=== PATIENT | male | born 1960 ===

== ENCOUNTER 2024-07-06 10:24 | Emergency (ER) | payer OTHER ==
[~2024-07-06] VITALS: Ht 180.3 cm; Wt 77.1 kg
[2024-07-06 11:53] LABS: BASOPHILS ABSOLUTE AUTO 0.06 K/mm3 (0.00-0.23); BASOPHILS PERCENT AUTO 1 % (0-2); EOSINOPHILS ABSOLUTE AUTO 0.04 K/mm3 (0.00-0.68); EOSINOPHILS PERCENT AUTO 1 % (0-6); Hematocrit 44.1 % (37.0-53.0); Hemoglobin 15.1 g/dL (13.5-17.5); IMMATURE GRAN ABSOLUTE AUTO 0.03 K/mm3 (0.00-0.10); IMMATURE GRAN PERCENT AUTO 0 % (0-1); LYMPHOCYTES ABSOLUTE AUTO 3.44 K/mm3 (0.84-5.20); LYMPHOCYTES PERCENT AUTO 42 % (21-46); MONOCYTES ABSOLUTE AUTO 0.62 K/mm3 (0.16-1.47); MONOCYTES PERCENT AUTO 8 % (4-13); Mean Corpuscular HGB 32.4 pg (26.0-34.0); Mean Corpuscular HGB Conc 34.2 g/dL (31.5-36.5); Mean Corpuscular Volume 95 fL (80-100); NEUTROPHILS ABSOLUTE AUTO 3.95 K/mm3 (1.96-9.15); NEUTROPHILS PERCENT AUTO 49 % (41-73); Platelet Count 188 K/mm3 (150-400); RDW Coefficient Variation 13.2 % (11.7-14.2); RDW Standard Deviation 45.5 fL (35.1-46.3); Red Blood Cell Count 4.66 M/mm3 (4.30-5.90); White Blood Cell Count 8.14 K/mm3 (4.00-11.30)
[2024-07-06 11:57] LABS: Source, Urine Voided
[2024-07-06 12:02] LABS: Appearance, Urine Clear (Clear); Bilirubin, Urine Neg (Neg); Blood, Urine Neg (Neg); Color, Urine Yellow (P-Yellow); Glucose Qualitative, Urine Neg (Neg); Ketones, Urine 1+ (Neg); Leukocyte Esterase, Urine Neg (Neg); Nitrite, Urine Neg (Neg); Protein, Urine Neg (Neg); Urobilinogen, Urine NORM (Normal)
[2024-07-06 12:18] LABS: Ethanol (Alcohol), Blood, Med <3 mg/dL
[2024-07-06 12:19] LABS: Salicylate <1.7 mg/dL (2.8-20.0)
[2024-07-06 12:21] LABS: Alanine Aminotransfer (ALT/SGP 37 U/L (12-78); Albumin, Blood 3.9 g/dL (3.4-5.0); Albumin/Globulin Ratio 1.1 (0.8-1.8); Alk Phos 72 U/L (50-136); Anion Gap 10 mmol/L (3-11); Aspartate Aminotrans (AST/SGOT 29 U/L (12-37); Blood Urea Nitrogen 16 mg/dL (8-24); Bun/Creatinine Ratio 18.1 (12.0-20.0); CO2, Blood 28 mmol/L (21-32); Calcium, Blood 8.7 mg/dL (8.5-10.1); Chloride, Blood 103 mmol/L (98-108); Creatinine, Blood 0.88 mg/dL (0.60-1.20); Globulin, Blood 3.6 g/dL (2.2-4.0); Glomerular Filtration Rate 97 (60-); Glucose, Blood 86 mg/dL (70-99); Potassium, Blood 4.1 mmol/L (3.5-5.5); Sodium, Blood 137 mmol/L (136-145); Total Protein, Blood 7.5 g/dL (6.4-8.2)
[2024-07-06 12:22] LABS: Acetaminophen, Random <2.0 ug/mL (10.0-30.0)
[2024-07-06 12:22] LABS: U Amphetamine Screen DETECTED; U Barbituate Screen Not Detected; U Benzodiazapine Screen Not Detected; U Buprenorphine Screen Not Detected; U Cannabinoids Screen Not Detected; U Cocaine Screen Not Detected; U Methadone Screen Not Detected; U Methamphetamine Screen DETECTED; U Opiates Screen Not Detected; U Oxycodone Screen Not Detected; U Phencyclidine Screen Not Detected
[2024-07-06] MEDS ORDERED: Polyethylene Glycol 3350 17 gm PO PRN (16:45)
[2024-07-06] MEDS ORDERED: Melatonin 3 MG Tab PO PRN (16:45)
[2024-07-06] MEDS ORDERED: TraZODone HCl 50 MG Tab PO PRN (16:45)
[2024-07-06] MEDS ORDERED: Aluminum Hydroxide 320MG/5ML 473 ML PO PRN (16:50)
[2024-07-06] MEDS ORDERED: OLANZapine ODT 10 MG Tab MM PRN (16:50)
[2024-07-06] MEDS ORDERED: LORazepam 2 MG Tab PO PRN (16:50)
[2024-07-06] MEDS ORDERED: DiphenhydrAMINE HCl 50 MG Cap PO PRN (16:50)
[2024-07-06] MEDS ORDERED: DiphenhydrAMINE HCl 50 MG/ML 1ML Vial IV PRN (16:50)
[2024-07-06] MEDS ORDERED: LORazepam 2 MG/ML 1ML Injection IM PRN (16:50)
[2024-07-06] MEDS ORDERED: FLU VACC TS2024-25(6MOS UP)/PF 45 MCG/0.5 ML SYRINGE IM SCH (16:55)
[2024-07-06] MEDS ORDERED: Acetaminophen 325 MG TABLET PO PRN (16:55)
[2024-07-06] MEDS ORDERED: Calcium Carbonate 500 MG Tab Chew PO PRN (16:55)
[2024-07-06] MEDS ORDERED: Haloperidol 5 MG Tab PO PRN (16:55)
[2024-07-06] MEDS ORDERED: Ibuprofen 600 MG Tab PO PRN (16:55)
[2024-07-06] MEDS ORDERED: Haloperidol Lactate Inj. 5 MG/ML Injection IM PRN (16:55)
[2024-07-06] MEDS ORDERED: HydrOXYzine Pamoate 50 MG Cap PO PRN (16:55)
[2024-07-06] MEDS ORDERED: Ondansetron 4 MG SoluTab MM PRN (17:05)
[2024-07-07] MEDS ORDERED: Multivitamins 1 Tab PO SCH (09:00)
== END 2024-07-07 08:46 | disposition other institution (70) ==
LOC: ER 10:24
PROVIDERS: Emergency Medicine
DX: F20.9 Schizophrenia, unspecified (principal)
CPT/HCPCS: 80053; 80320; 81003; 85025; 93005; 93010; 99285-25; G0480

== ENCOUNTER 2024-07-06 16:43 | Inpatient (IN) | payer OTHER ==
[~2024-07-06] VITALS: Wt 75.5 kg
[2024-07-07] MEDS ORDERED: DiphenhydrAMINE HCl 50 MG Cap PO PRN (06:55)
[2024-07-07] MEDS ORDERED: DiphenhydrAMINE HCl 50 MG/ML 1ML Vial IV PRN (06:55)
[2024-07-07] MEDS ORDERED: FLU VACC TS2024-25(6MOS UP)/PF 45 MCG/0.5 ML SYRINGE IM SCH (06:55)
[2024-07-07] MEDS ORDERED: Haloperidol Lactate Inj. 5 MG/ML Injection IM PRN (07:00)
[2024-07-07] MEDS ORDERED: Polyethylene Glycol 3350 17 gm PO PRN (07:00)
[2024-07-07] MEDS ORDERED: OLANZapine ODT 10 MG Tab MM PRN (07:00)
[2024-07-07] MEDS ORDERED: HydrOXYzine Pamoate 50 MG Cap PO PRN (07:00)
[2024-07-07] MEDS ORDERED: LORazepam 2 MG/ML 1ML Injection IM PRN (07:00)
[2024-07-07] MEDS ORDERED: Haloperidol 5 MG Tab PO PRN (07:00)
[2024-07-07] MEDS ORDERED: Ibuprofen 600 MG Tab PO PRN (07:05)
[2024-07-07] MEDS ORDERED: TraZODone HCl 50 MG Tab PO PRN (07:05)
[2024-07-07] MEDS ORDERED: Aluminum Hydroxide 320MG/5ML 473 ML PO PRN (07:05)
[2024-07-07] MEDS ORDERED: Acetaminophen 325 MG TABLET PO PRN (07:05)
[2024-07-07] MEDS ORDERED: LORazepam 2 MG Tab PO PRN (07:05)
[2024-07-07] MEDS ORDERED: Calcium Carbonate 500 MG Tab Chew PO PRN (07:05)
[2024-07-07] MEDS ORDERED: Melatonin 3 MG Tab PO PRN (07:05)
[2024-07-07] MEDS ORDERED: Ondansetron 4 MG SoluTab MM PRN (07:10)
[2024-07-07] MEDS ORDERED: Multivitamins 1 Tab PO SCH (09:00)
[2024-07-07 09:06] VITALS: BP 127/87
[2024-07-07] MEDS ORDERED: Levothyroxine Sodium 0.05 MG Tab PO SCH (14:00)
--- NOTE | 2024-07-07 17:59 | NUR ---
SHIFT SUMMARY: PT ARRIVED TO UNIT THIS AM. HAS SPENT MOST OF THE DAY SLEEPING ON HIS BED. UP FOR MEALS AND COMPLIANT WITH MEDICATIONS.
[2024-07-07 20:13] VITALS: BP 107/82
[2024-07-07] MEDS ORDERED: RisperiDONE 1 MG Tab PO SCH (21:00)
--- NOTE | 2024-07-08 05:15 | NUR ---
SHIFT SUMMARY: PATIENT IN BED RESTING WHEN RN TOOK OVER CARE AT 0030. HE CONTINUED TO REST QUIETLY WITH EYES CLOSED AND RESPIRATIONS CONFIRMED FOR THE REMAINDER OF THE SHIFT. NO S/SX SUICIDAL IDEATION OR SELF HARMING NOTED THIS SHIFT. CONTINUING TO MONITOR FOR SAFETY WITH Q15 MINUTE CHECKS.
[2024-07-08 07:59] VITALS: BP 123/78
--- NOTE | 2024-07-08 17:49 | NUR ---
SHIFT SUMMARY: PT ALERT, ORIENTED AND COOPERATIVE WITH CARE. PT ATTENDED MEALS AND WAS COMPLIANT WITH MEDICATIONS. HE DENIES SI, HI BUT DOES INDORSE ADUITORY HALLUCINATIONS. PT WAS NOT VERY TALKATIVE THROUGHOUT THE DAY. HE DID GO INTO THE DAY ROOM WITH STAFF AND PEERS FOR A SHORT PERIOD OF TIME TO WATCH TV.
[2024-07-08 20:35] VITALS: BP 100/63
[2024-07-08] MEDS ORDERED: RisperiDONE 1 MG Tab PO SCH (21:00)
--- NOTE | 2024-07-09 04:21 | NUR ---
SHIFT SUMMARY: PATIENT WAS IN BED RESTING AT THE BEGINNING OF THE SHIFT. HE DECLINED OFFERS TO COME TO THE DINING AREA AND HAVE A SNACK AT 1999. HE WAS COMPLIANT WITH EVENING MEDICATION ADMINISTRATION. HE GRUNTED DENIAL WHEN ASKED IF HE FELT SUICIDAL IDEATION OR FELT LIKE SELF HARMING. HE RESTED QUIETLY IN BED WITH EYES CLOSED AND RESPIRATIONS CONFIRMED FOR MOST OF THE SHIFT, ONLY AWAKENING FOR MEDICATIONS AND TO USE BATHROOM. CONTINUING TO MONITOR FOR SAFETY WITH Q15 MINUTE CHECKS.
[2024-07-09 08:33] VITALS: BP 112/69
--- NOTE | 2024-07-09 17:03 | NUR ---
SHIFT SUMMARY: PT ALERT, ORIENTED AND COOPERATIVE WITH CARE. DENIES SI AND HI. C/O OF AVH. STATES THAT THE VOICES ARE QUITER TODAY. PT PRESENT FOR MEALS AND COMPLIANT WITH MEDICATIONS. PT AMBULATED IN TOWARDS THE END OF THE DAY. C/O INCREASED ANXIETY. MEDICATED PER EMAR WITH PRN.
[2024-07-09 20:36] VITALS: BP 110/73
--- NOTE | 2024-07-10 04:49 | NUR ---
SHIFT SUMMARY: PATIENT WAS IN BED AT THE BEGINNING OF THE SHIFT. HE STATED THAT HE WOULD GET UP FOR SNACK. HE DID PARTICIPATE IN SNACK AND FOLLOW UP GROUP AT 2000 IN THE DINING AREA. HE STATED THAT HE HAD NO NEEDS OR CONCERNS AT THIS TIME. HE DENIED FEELING SUICIDAL IDEATION OR THOUGHTS OF SELF HARM. HE WAS PLEASANT AND COOPERATIVE WITH CARES. HE WAS COMPLIANT WITH EVENING MEDICATIONS. AFTER SNACK, HE WENT BACK TO BED AND WAS NOTED TO BE RESTING QUIETLY WITH EYES CLOSED AND RESPIRATIONS CONFIRMED. CONTINUING TO MONITOR FOR SAFETY WITH Q15 MINUTE CHECKS.
[2024-07-10 08:23] VITALS: BP 100/62
--- NOTE | 2024-07-10 18:08 | NUR ---
SHIFT SUMMARY PT A&O X4; AT START OF SHIFT PT COMPLAINED OF GENERALIZED ACHINESS AND ANXIETY. DENIED VISTARIL ("I'LL COME GRAB IT WHEN I NEED IT"). DR HAMPTON AWARE OF PT'S C/O ACHINESS. WHEN REASSESSING PT STATED NO LONGER ACHY, JUST WEAKNESS. END OF SHIFT PT STATED HE "FEELS BETTER", AND ASKED FOR VISTARIL. PT GUARDED; DENIED SI, HI, V AND T HALLUCINATIONS, BUT CONFIRMED AUDITORY HALLUCINATIONS, STATED HE JUST HEARD WHISPERING AND COULD NOT UNDERSTAND ANY WORDS AND THAT THEY DID NOT SOUND THREATENING. PT TAKING MEDICATIONS PRESCRIBED, PARTICIPATED IN 1300 [facility] GROUP.
[2024-07-10 21:17] VITALS: BP 119/83
--- NOTE | 2024-07-11 04:44 | NUR ---
SHIFT SUMMARY PT IN BED AT START OF SHIFT, AWAKES EASILY. DENIES ANY SI, HI OR THOUGHTS OF SELF HARM. PT REPORTS AUDITORY HALLUCINATIONS, THAT ARE WHISPERS. PT IS CALM AND COOPERATIVE WITH CARE. HAD EVENING SNACK AND WAS COMPLIANT WITH MEDICATIONS. PT HAD PRN MELATONIN AND WENT TO BED AFTER SNACK. PT AWOKE AT APPROXIMATELY 0105, DUE TO A DISRUPTIVE ROOMMATE, AND WAS ALLOWED TO GO TO THE SENSORY ROOM TO REST. PT WAS ABLE TO RETURN TO HIS ROOM AT 0130 AND APPEARED TO FALL BACK TO SLEEP QUICKLY. Q15 MINUTE CHECKS TO CONTINUE PER UNIT PROTOCOL/PT SAFETY.
[2024-07-11 07:53] VITALS: BP 116/75
--- NOTE | 2024-07-11 17:16 | NUR ---
SHIFT SUMMARY PT C/O BEING TIRED D/T LAST NIGHT'S ROOMMATE BEING DISTURBING. HE WAS CALM AND COOPERATIVE WITH MEDS BUT DID NOT PARTICIPATE BUT MINIMALLY IN ACTIVITIES D/T PT BEING TIRED. PT WAS MOVED TO ANOTHER ROOM D/T NONCOMPATABILITY WITH ROOMMATE. HE IS A&O TO ALL. HE DENIES ANY SI/HI/AVH. PT HAD C/O ANXIETY INCREASING AFTER LUNCH AND HE WAS MEDICATED WITH VISTARIL. PT SPENT SOME TIME IN THE AFTERNOON AMBULATING IN THE HALLWAYS. WILL CONTINUE WITH Q15 CHECKS PER PROTOCOL.
[2024-07-11 21:12] VITALS: BP 118/79
--- NOTE | 2024-07-12 04:06 | NUR ---
SHIFT SUMMARY PT IN BED AT START OF SHIFT, AWAKES EASILY. DENIES ANY SI OR THOUGHTS OF SELF HARM. PT REPORTS AUDITORY HALLUCINATIONS, STATES "I ALWAYS HAVE THEM, I JUST DON'T LISTENT ANY MORE." PT COMPLIANT WITH MEDS. RECEIVED PRN MELATONIN. HE WENT BACK TO BED AFTER EVENING SNACK AND HAS APPEARED TO SLEEP WELL, WITH RESPIRATIONS CONFIRMED. Q15 MINUTE CHECKS TO CONTINUE PER UNIT PROTOCOL/PT SAFETY.
[2024-07-12 08:07] VITALS: BP 108/75
--- NOTE | 2024-07-12 10:55 | NUR ---
NURSE NOTE PT C/O INCREASED ANXIETY AT 11/02. HE IS CURRENTLY PACING THE HALLWAY AND REQUESTED VISTARIL PRN. PT MEDICATED WTIH VISTARIL. PT PACED A LITTLE MORE AND THEN WENT TO HIS ROOM.
--- NOTE | 2024-07-12 17:00 | NUR ---
SHIFT NOTE PT UP FOR MEALS AND SNACKS THIS SHIFT. HE HAS BEEN CALM AND COOPERATIVE WITH STAFF AND OTHER PEERS. HE C/O INCREASED ANXIETY IN THE AFTERNOON AND WAS MEDICATED WITH VISTARIL. PT DENIES ANY SI/HI/AVH IN THE AM AND THEN C/O HEARING VOICES IN THE AFTERNOON, BUT STATE THEY ARE NOT DISTRACTING HIM FROM NORMAL ACTIVITY JUST CONTRIBUTING TO HIS ANXIETY. PT WATCHING TV IN THE GROUP AT THIS TIME WITH PEERS AND STAFF.
[2024-07-12 20:03] VITALS: BP 111/77
--- NOTE | 2024-07-13 04:05 | NUR ---
SHIFT SUMMARY PT LAYING IN BED AWAKE AT START OF SHIFT. HE STATES "I'M TIRED, BUT MORE RELAXED NOW THAT SOME PATIENTS ARE GONE." PT REPORTS AUDITORY HALLUCINATIONS ARE LESSENING AT THIS TIME. DENIES ANY VISUAL OR TACTILE HALLUCINATIONS, NO SI OR HI. PT HAD EVENING SNACK, WAS COMPLIANT WITH MEDS. RECEIVED PRN MELATONIN. PT HAS APPEARED TO SLEEP WELL THROUGHOUT THE NIGHT, WITH RESPIRATIONS CONFIRMED. Q15 MINUTE CHECKS TO CONTINUE PER UNIT PROTOCOL/PT SAFETY.
[2024-07-13 07:48] VITALS: BP 109/74
[2024-07-13] MEDS ORDERED: LEVOTHYROXINE50 MC9 PO (11:22)
[2024-07-13] MEDS ORDERED: RISPERIDONE PO (11:23)
--- NOTE | 2024-07-13 11:50 | NUR ---
PT PENDING DISCHARGE. CALL PLACED TO [facility] AND TRANSPORTATION ARRANGED FOR 1400 TO TAKE PT TO [facility] TO FOLLOW UP WITH [facility].
--- NOTE | 2024-07-13 14:05 | NUR ---
DISCHARGE NOTE. PT DISCHARGED FROM [facility]. PT GOING TO [facility] TO MEET WITH [facility]. PT VERBALIZED UNDERSTANDING OF DISCHARGE INSTRUCTIONS AND DENIED QUESTIONS. PT BELONGINGS RETURNED BY ESHA SCHMITZ. PT AMBULATED OUT OF DEPT WITHOUT DIFFICULTY. DISCHARGE INSTRUCTIONS AND BELONGINGS IN HAND.
== END 2024-07-13 14:03 | disposition home or self-care (01) | DRG 885 ==
LOC: BHU 16:43
PROVIDERS: ADMIT Psychiatry & Neurology Psychiatry
DX: F20.0 Paranoid schizophrenia (principal); F15.20 Other stimulant dependence, uncomplicated; Z91.018 Allergy to other foods; Z79.890 Hormone replacement therapy; Z79.899 Other long term (current) drug therapy; Z79.1 Long term (current) use of non-steroidal anti-inflammatories (NSAID)
CPT/HCPCS: A9270